=== PATIENT | female | born 1970 | race Caucasian/White ===

== ENCOUNTER 2016-11-01 12:19 | Day surgery (SDC) | payer MEDICAID, OTHER ==
[~2016-11-01] VITALS: Ht 163.8 cm; Wt 87.6 kg
[2016-11-01 13:57] VITALS: Ht 163.8 cm; Wt 87.6 kg
[2016-11-01] MEDS ORDERED: ARIP5TAB7 PO (14:08)
[2016-11-01] MEDS ORDERED: LIT300 PO (14:10)
[2016-11-01] MEDS ORDERED: VENL150C94 PO (14:10)
[2016-11-01] MEDS ORDERED: TOPI200C PO (14:10)
[2016-11-01] MEDS ORDERED: LEVO137T3 PO (14:14)
[2016-11-01] MEDS ORDERED: PRAV40TA76 PO (14:14)
[2016-11-01] MEDS ORDERED: LORA-441 PO (14:14)
[2016-11-01] MEDS ORDERED: SPIR25TA PO (14:14)
[2016-11-01] MEDS ORDERED: ALBU8.5H3 INH (14:16)
[2016-11-01] MEDS ORDERED: LORA10TA3 PO (14:16)
[2016-11-01 15:16] VITALS: BP 104/75; PULSE 67; RESP 18
[2016-11-01] MEDS ORDERED: MIDAZOLAM 1 MG/ML 2 ML INJ ONE ×2 (15:59)
[2016-11-01] MEDS ORDERED: FENTAnyl 50 MCG/ML VIAL ONE (15:59)
[2016-11-01 16:20] VITALS: BP 137/85; PULSE 70; RESP 14
--- NOTE | 2016-11-26 10:54 | GILP ---
DATE OF PROCEDURE: 11/01/2016 PROCEDURE: Colonoscopy with snare polypectomy plus polyp ablation x2 plus biopsies. BRIEF HISTORY AND INDICATIONS: The patient with a complaint of diarrhea and abdominal pain. PREMEDICATION: Versed 4 mg, fentanyl 75 mcg, administered IV push by Dr. Negron. INSTRUMENT USED: Olympus colonoscope. PREPARATION: Was adequate. TECHNIQUE: After informed consent, with the patient/relatives understanding the procedure, its indic ations potential risks and complications, including but not limited to: allergic reaction, bleeding, perforation, infection, missed lesions and after all pertinent questions were answered to the patie nt's satisfaction, the patient/relatives signed the witnessed informed consent. Following this, premedication was administered slowly IV push by under careful cardiovascular and re spiratory monitoring with pulse oximetry, automatic blood pressure and playground monitor. Once the sedativ e effect was achieved, the patient was placed in the left lateral decubitus position, digital rectal examination was performed. The colonoscope was then introduced and advanced under visual control th roughout all segments of the colon including: the rectum, sigmoid, descending colon, splenic flexure , transverse colon, hepatic flexure, ascending colon and finally reaching the cecum which was clearl y identified by transillumination, finger indentation and the ileocecal valve. Careful examination o f the mucosa of the lower gastrointestinal tract both on insertion as well as withdrawal of the inst rument disclosed the following findings: Rectal Examination: No evidence of perirectal disease, no masses. Colonic Mucosa: There is diffuse erythema of the mucosa from the rectum to the cecum, raising the p ossibility of an inflammatory process. Random biopsies were obtained of right and left side of the colon. There is mild diverticulosis in left side of the colon. A 4 mm polyp was noted in the transverse colon and was ablated with biopsy forceps. A 4 mm polyp wa s noted in the distal ascending colon and was also ablated with biopsy forceps. A 7 mm polyp was no pérez in the proximal ascending colon, was snared and retrieved. The ileocecal valve was clearly iden tified and appears unremarkable. The instrument was withdrawn. On withdrawal of the instrument, no additional abnormalities are noted with exception of moderate sized internal hemorrhoids. IMPRESSION: 1. Diffuse erythema of the mucosa, rule out Crohn colitis. Biopsies obtained randomly, right and l eft colon. 2. Mild diverticulosis left side of the colon. 3. A 4 mm polyp, transverse colon, ablated. 4. A 4 mm polyp, distal ascending colon ablated. 5. A 7 mm polyp in the proximal ascending colon, snared and retrieved. 6. Moderate size internal hemorrhoids. PLAN: The patient will follow up as an outpatient. Annual Hemoccult stool testing is recommended. Surveillance colonoscopy in 3 to 5 years is recommended. Dictated By: BRUCE OBRIEN Conf#: [id number] DID#: [id number]
== END 2016-11-01 19:24 | disposition home or self-care (01) ==
LOC: GIL 12:19
PROVIDERS: ATTEND Internal Medicine Gastroenterology
DX: D12.3 Benign neoplasm of transverse colon (principal); D12.2 Benign neoplasm of ascending colon; K57.90 Diverticulosis of intestine, part unspecified, without perforation or abscess without bleeding; K64.8 Other hemorrhoids
CPT/HCPCS: 45380; 88305; J2250; J3010; Z7610